=== PATIENT | male | born 1960 | race Caucasian/White ===

== ENCOUNTER 2023-05-23 12:41 | Emergency (ER) | payer MEDICARE, MEDICAID ==
[~2023-05-23] VITALS: Ht 185.4 cm; Wt 136.9 kg
[~2023-05-23 12:41] MED LIST: AMOX-115 PO; ESOM40CA PO; RES15C PO; ZOC40T PO
[2023-05-23 13:57] LABS: BASOPHILS % (AUTO) 0.6 % (0-1); EOSINOPHILS # (AUTO) 0.2 X10'3 (0-0.9); EOSINOPHILS % (AUTO) 3.1 % (0-6); HEMATOCRIT 46.4 % (42.0-52.0); HEMOGLOBIN 15.6 g/dl (14.0-17.9); LYMPHOCYTES # (AUTO) 1.9 X10'3 (1.1-4.8); LYMPHOCYTES % (AUTO) 34.8 % (21-51); MEAN CORPUSCULAR HEMOGLOBIN 29.7 PG (27.0-31.0); MEAN CORPUSCULAR HGB CONC 33.6 g/dL (33.0-36.5); MEAN CORPUSCULAR VOLUME 88.4 FL (78-98); MEAN PLATELET VOLUME 8.1 FL (7.4-10.4); MONOCYTES # (AUTO) 0.5 X10'3 (0-0.9); MONOCYTES % (AUTO) 9.3 % (2-12); NEUTROPHILS # (AUTO) 2.8 X10'3 (1.8-7.7); NEUTROPHILS % (AUTO) 52.2 % (42-75); PLATELET COUNT 199 X10'3 (140-440); RED BLOOD COUNT 5.24 X10'6 (4.70-6.10); WHITE BLOOD COUNT 5.3 X10'3 (4.5-11.0)
[2023-05-23 14:18] LABS: ALANINE AMINOTRANSFERASE 43 U/L (12-78); ALBUMIN 3.7 G/DL (3.4-5.0); ALKALINE PHOSPHATASE 65 IU/L (46-116); ANION GAP 10 (8-16); ASPARTATE AMINO TRANSFERASE 20 U/L (10-37); BILIRUBIN,TOTAL 0.3 MG/DL (0.1-1.0); BLOOD UREA NITROGEN 18 MG/DL (7-18); BUN/CREATININE RATIO 17.1 (10.0-20.0); CALCIUM 9.2 MG/DL (8.5-10.1); CHLORIDE 100 MMOL/L (99-107); CREATININE 1.05 MG/DL (0.60-1.10); GLUCOSE 211 MG/DL (70-104); POTASSIUM 3.9 MMOL/L (3.5-5.1); SODIUM 136 MMOL/L (135-145); TOTAL CARBON DIOXIDE 26.3 MMOL/L (24-32); TOTAL PROTEIN 7.5 G/DL (6.4-8.2); eCRCL 82 ML/MIN; eGFR 72 ML/MIN
[2023-05-23] MEDS ORDERED: METF-438 PO (15:18)
[2023-05-23] MEDS ORDERED: DAPA10TA PO (15:18)
[2023-05-23 15:56] VITALS: BP 148/100; PULSE 95; RESP 18; TEMP 97.9; O2SAT 96
== END 2023-05-23 15:56 | disposition home or self-care (01) ==
LOC: ER 12:41
DX: E11.65 Type 2 diabetes mellitus with hyperglycemia (principal); E78.00 Pure hypercholesterolemia, unspecified; Z90.49 Acquired absence of other specified parts of digestive tract; Z88.8 Allergy status to other drugs, medicaments and biological substances; Z88.5 Allergy status to narcotic agent; Z79.2 Long term (current) use of antibiotics; Z79.899 Other long term (current) drug therapy
CPT/HCPCS: 36415; 80053; 82948; 85025; 99283

== ENCOUNTER 2024-03-09 06:54 | Inpatient (IN) | payer MEDICARE, MEDICAID ==
[2024-03-02 14:55] LABS: BASOPHILS % (AUTO) 0.6 % (0-1); EOSINOPHILS # (AUTO) 0.2 X10'3 (0-0.9); EOSINOPHILS % (AUTO) 4.1 % (0-6); LYMPHOCYTES % (AUTO) 33.5 % (21-51); MEAN CORPUSCULAR HEMOGLOBIN 30.4 PG (27.0-31.0); MEAN CORPUSCULAR HGB CONC 33.9 g/dL (33.0-36.5); MEAN CORPUSCULAR VOLUME 89.6 FL (78-98); MEAN PLATELET VOLUME 7.8 FL (7.4-10.4); MONOCYTES # (AUTO) 0.6 X10'3 (0-0.9); MONOCYTES % (AUTO) 9.6 % (2-12); NEUTROPHILS # (AUTO) 3.1 X10'3 (1.8-7.7); NEUTROPHILS % (AUTO) 52.2 % (42-75); PRE OP HEMATOCRIT 44.7 % (42.0-52.0); PRE OP HEMOGLOBIN 15.2 g/dL (14.0-17.9); PRE OP PLATELET COUNT 190 X10'3 (140-440); PRE OP WHITE BLOOD COUNT 5.9 10'3 (4.8-10.8); RED BLOOD COUNT 4.99 X10'6 (4.70-6.10); RED CELL DISTRIBUTION WIDTH 14.3 % (11.5-14.5)
[2024-03-02 15:16] LABS: ALBUMIN 3.6 G/DL (3.4-5.0); ALBUMIN/GLOBULIN RATIO 1.1 (1.1-1.5); ALKALINE PHOSPHATASE 66 IU/L (46-116); BLOOD UREA NITROGEN 21 MG/DL (7-18); BUN/CREATININE RATIO 19.3 (10.0-20.0); CALCIUM 8.8 MG/DL (8.5-10.1); CHLORIDE 107 MMOL/L (99-107); CREATININE 1.09 MG/DL (0.60-1.10); PRE OP ALT 33 U/L (30-65); PRE OP ANION GAP 7 (8-16); PRE OP AST 19 U/L (10-37); PRE OP BILIRUB, TOTAL 0.4 MG/DL (0.0-1.0); PRE OP GLUCOSE 134 MG/DL (70-104); PRE OP POTASSIUM 3.8 MMOL/L (3.4-5.1); PRE OP SODIUM 140 MMOL/L (135-145); TOTAL CARBON DIOXIDE 26.5 MMOL/L (24-32); TOTAL PROTEIN 6.9 G/DL (6.4-8.2); eGFR 68 ML/MIN
[2024-03-09] VITALS (27 sets, daily range): BP systolic 101–152; BP diastolic 55–95; PULSE 91–114; RESP 10–21; TEMP 97.4–98.4; O2SAT 91–100
[~2024-03-09] VITALS: Ht 185.4 cm; Wt 127.0 kg
[2024-03-09] MEDS: ringers solution, lacted 1,000 ML IV SCH ×2 (05:30→15:30)
[~2024-03-09 06:54] MED LIST changes: -AMOX-115 PO; +BENA10TA75 PO; -ESOM40CA PO; +IBUP-1986 PO; +OMEP40CA21 PO; -RES15C PO; +SEMA0.258; +SIMV-45 PO; -ZOC40T PO
[2024-03-09] MEDS: Cefazolin 3 GM/100ML NS IVPB 100 ML IV ONE (07:15)
[2024-03-09] MEDS: famotidine 20mg tablet PO ONE (07:32)
[2024-03-09] MEDS ORDERED: proCHLORperazine 10 MG/2 ml inj IV PRN (08:05)
[2024-03-09] MEDS ORDERED: meperidine/PF 25mg/ml syringe IV PRN (08:05)
[2024-03-09] MEDS ORDERED: enalaprilat dihydrate 2.5mg/2ml vial IV PRN (08:05)
[2024-03-09] MEDS ORDERED: labetalol 20mg/4ml (5mg/ml) syringe IV PRN (08:05)
[2024-03-09] MEDS: LIDOcaine 1% (10mg/ml)w/preservative inj. 20ml MDV ONE (09:31)
[2024-03-09] MEDS ORDERED: fentaNYL /PF 50mcg/ml 5ml ampule ONE (09:56)
[2024-03-09] MEDS ORDERED: propofol inj 20 ML IV ONE (09:56)
[2024-03-09] MEDS ORDERED: LIDOcaine 2% (20mg/ml) 5ml vial ONE (09:56)
[2024-03-09] MEDS ORDERED: midazolam 1 mg/ML 2ml injection ONE (09:56)
[2024-03-09] MEDS ORDERED: sevoflurane 250ml liquid IH ONE (09:57)
[2024-03-09] MEDS ORDERED: rocuronium 10mg/ml inj IV ONE (10:19)
[2024-03-09] MEDS: BUPIVAcaine 2.5mg/ml inj 50ml vial (contains preservative) ONE (11:03)
[2024-03-09] MEDS: BUPIVACAINE liposomal/PF 13.3 MG/ML vial IM ONE (11:03)
[2024-03-09] MEDS: LIDOcaine 1% 30ml preserv. free vial IJ ONE (11:15)
[2024-03-09] MEDS ORDERED: acetaminophen 1,000mg/100ml IV 100 ML IV ONE (12:27)
[2024-03-09] MEDS ORDERED: glycopyrrolate 0.2mg/ml inj ONE (12:29)
[2024-03-09] MEDS ORDERED: neostigmine methylsulfate 1 MG/ML 10ml vial ONE (12:29)
[2024-03-09] MEDS: meperidine/PF 25mg/ml syringe IV PRN ×2 (13:35→13:50)
[2024-03-09] MEDS: ondansetron/PF 4mg/2ml inj IV PRN (15:43)
[2024-03-09] MEDS: normal saline 1000ml 1,000 ML IV SCH (15:50)
[2024-03-09] MEDS ORDERED: ondansetron/PF 4mg/2ml inj IV PRN (15:50)
[2024-03-09] MEDS: HYDROmorph/NS 0.2 mg/ml PCA 100 ML IV SCH (15:50)
[2024-03-09] MEDS ORDERED: naloxone 0.4 mg/ml inj IV PRN (15:50)
[2024-03-09] MEDS: oxyCODONE/APAP 5-325mg tablet PO PRN (15:58)
[2024-03-09] MEDS: simvastatin 20mg tablet PO SCH (20:18)
[2024-03-09] MEDS: enoxaparin 30mg/0.3ml syringe SQ SCH (20:21)
[2024-03-10] MEDS: potassium CL 20mEq in D5-1/2NS 1,000 ML IV SCH (01:26)
[2024-03-10 01:30] VITALS: BP 128/78; PULSE 113; RESP 14; TEMP 97.5; O2SAT 93
[2024-03-10 06:00] VITALS: BP 143/95; PULSE 114; RESP 18; TEMP 98.3; O2SAT 94
[2024-03-10 08:00] VITALS: RESP 18; O2SAT 94
[2024-03-10] MEDS: lisinopril 10 MG tablet PO SCH (08:42)
[2024-03-10] MEDS: pantoprazole 40mg Tablet.DR PO SCH (08:43)
[2024-03-10 10:00] VITALS: BP 131/69; PULSE 109; RESP 19; TEMP 98.4; O2SAT 94
[2024-03-10 12:28] VITALS: RESP 16
== END 2024-03-10 17:34 | disposition home or self-care (01) | DRG 337 ==
LOC: PAS 06:54 → PAS IN 15:54 → SUR 3N 18:28
PROVIDERS: ADMIT Surgery; ATTEND Surgery
PROC: 0WUF4JZ Supplement Abdominal Wall with Synthetic Substitute, Percutaneous Endoscopic Approach (ICD-10-PCS; 2024-03-09)
PROC: 8E0W4CZ Robotic Assisted Procedure of Trunk Region, Percutaneous Endoscopic Approach (ICD-10-PCS; 2024-03-09)
PROC: 0DN84ZZ Release Small Intestine, Percutaneous Endoscopic Approach (ICD-10-PCS; 2024-03-09)
PROC: 0DNU4ZZ Release Omentum, Percutaneous Endoscopic Approach (ICD-10-PCS; 2024-03-09)
PROC: 3E0T3BZ Introduction of Anesthetic Agent into Peripheral Nerves and Plexi, Percutaneous Approach (ICD-10-PCS; principal; 2024-03-09 09:57)
DX: K43.0 Incisional hernia with obstruction, without gangrene (principal); K66.0 Peritoneal adhesions (postprocedural) (postinfection); E66.01 Morbid (severe) obesity due to excess calories; E11.9 Type 2 diabetes mellitus without complications; I10 Essential (primary) hypertension; M54.9 Dorsalgia, unspecified; K21.9 Gastro-esophageal reflux disease without esophagitis; Z87.891 Personal history of nicotine dependence; Z68.37 Body mass index [BMI] 37.0-37.9, adult
CPT/HCPCS: 36415; 80053; 82948; 85025; 93005; A4215; A4615; A4618; C1781; C9290; G0378; J0131; J0690; J1100; J1650; J2175; J2250; J2405; J2704; J2710; J3010; J3480; J3490; J7120

== ENCOUNTER 2024-03-15 18:23 | Emergency (ER) | payer MEDICARE, MEDICAID ==
[~2024-03-15] VITALS: Ht 185.4 cm; Wt 126.0 kg
[2024-03-15] MEDS: bisacodyl 10mg suppository rectal RC STA (21:28)
[2024-03-15] MEDS: normal saline 1000ML IV soln IVB ONE (22:09)
[2024-03-15] MEDS: methylnaltrexone br 12mg/0.6ml inj***SubQ only SQ ONE (22:09)
[2024-03-15 22:48] VITALS: BP 148/87; PULSE 100; RESP 16; TEMP 98; O2SAT 100
== END 2024-03-15 22:50 | disposition home or self-care (01) ==
LOC: ER 18:23
DX: K59.00 Constipation, unspecified (principal); E78.00 Pure hypercholesterolemia, unspecified; E11.9 Type 2 diabetes mellitus without complications; K21.9 Gastro-esophageal reflux disease without esophagitis; G89.18 Other acute postprocedural pain; Z88.5 Allergy status to narcotic agent; Z88.6 Allergy status to analgesic agent; Z79.899 Other long term (current) drug therapy; Z90.49 Acquired absence of other specified parts of digestive tract
CPT/HCPCS: 74018; 96372; 99284; J2212; J7030